=== PATIENT | female | born 1990 | race Two or more races ===

== ENCOUNTER 2017-02-22 10:55 | Observation (INO) | payer MEDICAID ==
[~2017-02-22] VITALS: Ht 154.9 cm; Wt 63.0 kg
[2017-02-22] MEDS ORDERED: LACTATED RINGER'S 1,000 ML IV ONE (11:40)
[2017-02-22] MEDS ORDERED: TERBUTALINE SULFATE 1 MG/ML 1ML VIAL SC ONE (11:41)
[2017-02-22] MEDS ORDERED: BETAMETHASONE ACET (6MG/ML) 5ML VIAL ONE (11:42)
[2017-02-22] MEDS ORDERED: BETAMETHASONE ACET (6MG/ML) 5ML VIAL IM ONE (11:45)
[2017-02-22] MEDS: TERBUTALINE SULFATE 1 MG/ML 1ML VIAL SC SCH ×3 (11:49→12:25)
[2017-02-22 12:50] LABS: Urine Bilirubin Negative (Negative); Urine Blood TRACE /uL (Negative); Urine Color Yellow (Yellow); Urine Glucose Normal (Normal); Urine Ketone Negative (Negative); Urine Nitrite Negative (Negative); Urine RBC 3 /hpf (0 - 4); Urine Squamous Epithelial Cell FEW /hpf (<5); Urine Urobilinogen Normal (Negative)
== END 2017-02-22 13:30 | disposition home or self-care (01) | DRG 563 ==
LOC: LDRP 10:55
PROVIDERS: ADMIT Specialist; ATTEND Specialist
DX: O60.03 Preterm labor without delivery, third trimester (principal); O62.9 Abnormality of forces of labor, unspecified; Z3A.33 33 weeks gestation of pregnancy
CPT/HCPCS: 59025; 76805; 80307; 81001; 81002; 82948; 82962; 96360; 96361; 96372; G0378; J0702; J3105; 96366

== ENCOUNTER 2017-02-23 11:40 | Observation (INO) | payer MEDICAID ==
[2017-02-23] MEDS ORDERED: BETAMETHASONE ACET (6MG/ML) 5ML VIAL IM ONE (12:00)
== END 2017-02-23 13:55 | disposition home or self-care (01) | DRG 566 ==
LOC: LDRP 11:40
PROVIDERS: ADMIT Obstetrics & Gynecology; ATTEND Obstetrics & Gynecology
DX: O26.893 Other specified pregnancy related conditions, third trimester (principal); Z02.89 Encounter for other administrative examinations; Z3A.33 33 weeks gestation of pregnancy
CPT/HCPCS: 59025; 81002; 82962; 96372; G0378; J0702

== ENCOUNTER 2017-03-13 18:29 | Observation (INO) | payer MEDICAID ==
[~2017-03-13] VITALS: Ht 30.5 cm; Wt 0.5 kg
[2017-03-13] MEDS ORDERED: LACT. RINGERS/OXYTOCIN 20UNITS 1,000 ML IV SCH (21:22)
[2017-03-13] MEDS ORDERED: LACTATED RINGER'S 1,000 ML IV SCH (21:22)
[2017-03-13] MEDS ORDERED: LIDOCAINE 2%HCL (LOCAL ANESTH.) INJ 20ML MDV IJ ONE (21:30)
[2017-03-13] MEDS ORDERED: PHISODERM TOP SOLN 240ML BTL TOP PRN (21:30)
[2017-03-13] MEDS ORDERED: DERMOPLAST 60ML BOTTLE TOP PRN (21:30)
[2017-03-13] MEDS ORDERED: WITCH HAZEL-GLYCERIN PAD TOP PRN (21:30)
[2017-03-13] MEDS ORDERED: NALBUPHINE HCL 10 MG/1ml INJECTION IV PRN (21:30)
[2017-03-13] MEDS ORDERED: METHYLERGONOVINE MALEATE 0.2 MG/ML AMP IM PRN (21:30)
[2017-03-13] MEDS ORDERED: PENICILLIN G POT 5MIL/D5 50ML 50 ML IV ONE (21:30)
[2017-03-13 22:32] LABS: Basophils # (auto) 0 uL; Basophils % (auto) 0.4 % (0.0-2.0); Eosinophils # (auto) 0.1 uL; Eosinophils % (auto) 0.5 % (0.0-7.0); Hemoglobin 12.8 g/dL (12.2-16.2); Lymphocytes # (auto) 2.1 uL; Lymphocytes % (auto) 21.3 % (10.0-50.0); Mean Corpuscular Hemoglobin 31.5 pg (28.0-32.0); Mean Corpuscular Hgb Conc. 33.8 g/dL (32.0-36.0); Mean Corpuscular Volume 93.4 fL (80.0-100.0); Mean Platelet Volume 8.1 fL (7.4-10.4); Monocytes # (auto) 0.9 uL; Monocytes % (auto) 8.9 % (0.0-12.0); Neutrophils # (auto) 6.8 uL; Neutrophils % (auto) 68.9 % (37.0-80.0); Platelet Count (auto) 190 10^3/uL (140-450); White Blood Cell 9.9 10^3/uL (4.4-10.8)
[2017-03-13 22:47] LABS: INR 0.92 (0.9-1.15); Partial Thromboplastin Time 32.2 sec (22.64-33.71)
[2017-03-13 22:54] LABS: Albumin 2.7 g/dL (3.4-5.0); Calcium 8.4 mg/dL (8.5-10.1); Potassium 3.4 mmol/L (3.5-5.1)
[2017-03-13 22:56] LABS: BUN/Creatinine Ratio 15.9
[2017-03-13 22:58] LABS: Bilirubin, Total 0.3 mg/dL (0.2-1.0); Total Protein 6.3 g/dL (6.4-8.2)
[2017-03-13 23:05] LABS: Urine Bilirubin Negative (Negative); Urine Blood Negative /uL (Negative); Urine Color Yellow (Yellow); Urine Glucose Normal (Normal); Urine Nitrite Negative (Negative); Urine RBC 1 /hpf (0 - 4); Urine Squamous Epithelial Cell FEW /hpf (<5); Urine Urobilinogen Normal (Negative)
[2017-03-13 23:06] LABS: Urine Ketone 1+ (Negative)
[2017-03-14] MEDS: PENICILLIN G POTASSIUM 2,500,000 UNITS in D5W 5% 50 ML IV SCH ×2 (02:50→06:48)
[2017-03-14] MEDS ORDERED: TERBUTALINE SULFATE 1 MG/ML 1ML VIAL SC ONE (08:49)
[2017-03-14] MEDS ORDERED: TERBUTALINE SULFATE 1 MG/ML 1ML VIAL SC SCH (09:00)
== END 2017-03-14 10:00 | disposition home or self-care (01) | DRG 563 ==
LOC: LDRP 18:29
PROVIDERS: ADMIT Specialist; ATTEND Specialist
DX: O60.03 Preterm labor without delivery, third trimester (principal); O26.893 Other specified pregnancy related conditions, third trimester; O62.9 Abnormality of forces of labor, unspecified; M54.9 Dorsalgia, unspecified; R10.9 Unspecified abdominal pain; Z3A.36 36 weeks gestation of pregnancy
CPT/HCPCS: 36415; 59025; 80053; 80307; 81001; 81002; 82948; 82962; 85025; 85610; 85730; 86850; 86900; 86901; 96365; 96372; 96375; G0378; J2540; J2590; J3105; 96361; 96366; J7060

== ENCOUNTER 2017-03-15 10:20 | Observation (INO) | payer MEDICAID | END 2017-03-15 11:40 | disposition home or self-care (01) | DRG 566 | LOC: LDRP 10:20 | PROVIDERS: ADMIT Obstetrics & Gynecology; ATTEND Obstetrics & Gynecology | DX: O34.63 Maternal care for abnormality of vagina, third trimester (principal); O26.893 Other specified pregnancy related conditions, third trimester; N89.5 Stricture and atresia of vagina; R10.9 Unspecified abdominal pain; O62.9 Abnormality of forces of labor, unspecified; Z3A.37 37 weeks gestation of pregnancy | CPT/HCPCS: 59025; 81002; G0378 ==

== ENCOUNTER 2017-03-17 18:56 | Observation (INO) | payer MEDICAID | END 2017-03-17 20:06 | disposition home or self-care (01) | DRG 566 | LOC: LDRP 18:56 | PROVIDERS: ADMIT Obstetrics & Gynecology; ATTEND Obstetrics & Gynecology | DX: O24.419 Gestational diabetes mellitus in pregnancy, unspecified control (principal); Z3A.37 37 weeks gestation of pregnancy | CPT/HCPCS: 59025; 81002; G0378 ==

== ENCOUNTER 2017-03-23 10:15 | Observation (INO) | payer MEDICAID | END 2017-03-23 11:00 | disposition home or self-care (01) | DRG 566 | LOC: LDRP 10:15 | PROVIDERS: ADMIT Specialist; ATTEND Specialist | DX: O24.419 Gestational diabetes mellitus in pregnancy, unspecified control (principal); Z3A.38 38 weeks gestation of pregnancy | CPT/HCPCS: 59025; 81002; 82962; G0378 ==

== ENCOUNTER 2017-03-26 11:25 | Observation (INO) | payer MEDICAID | END 2017-03-26 12:50 | disposition home or self-care (01) | DRG 566 | LOC: LDRP 11:25 | PROVIDERS: ADMIT Obstetrics & Gynecology; ATTEND Obstetrics & Gynecology | DX: O24.419 Gestational diabetes mellitus in pregnancy, unspecified control (principal); O26.893 Other specified pregnancy related conditions, third trimester; R51 Headache; Z3A.38 38 weeks gestation of pregnancy | CPT/HCPCS: 59025; 76818; 81002; G0378 ==

== ENCOUNTER 2017-03-29 22:14 | Inpatient (IN) | payer MEDICAID ==
[~2017-03-29] VITALS: Ht 154.9 cm; Wt 66.2 kg
[2017-03-29] MEDS ORDERED: PHISODERM TOP SOLN 240ML BTL TOP PRN (22:45)
[2017-03-29] MEDS ORDERED: NALBUPHINE HCL 10 MG/1ml INJECTION IV PRN (22:45)
[2017-03-29] MEDS ORDERED: LACT. RINGERS/OXYTOCIN 20UNITS 1,000 ML IV SCH (22:45)
[2017-03-29] MEDS ORDERED: PROMETHAZINE HCL 25 MG/ML 1ML IV ONE (22:45)
[2017-03-29] MEDS ORDERED: WITCH HAZEL-GLYCERIN PAD TOP PRN (22:45)
[2017-03-29] MEDS ORDERED: LACTATED RINGER'S 1,000 ML IV SCH (22:45)
[2017-03-29] MEDS ORDERED: DERMOPLAST 60ML BOTTLE TOP PRN (22:45)
[2017-03-29] MEDS ORDERED: METHYLERGONOVINE MALEATE 0.2 MG/ML AMP IM PRN (22:45)
[2017-03-29] MEDS ORDERED: LIDOCAINE 2%HCL (LOCAL ANESTH.) INJ 20ML MDV IJ PRN (22:45)
[2017-03-29 23:26] LABS: Basophils # (auto) 0 uL; Basophils % (auto) 0.3 % (0.0-2.0); CONDITION AutoValidated; Eosinophils # (auto) 0 uL; Eosinophils % (auto) 0.2 % (0.0-7.0); Hematocrit 37.7 % (36.0-46.0); Hemoglobin 12.8 g/dL (12.2-16.2); Lymphocytes # (auto) 2.1 uL; Lymphocytes % (auto) 20.9 % (10.0-50.0); Mean Corpuscular Hgb Conc. 34.1 g/dL (32.0-36.0); Mean Corpuscular Volume 93.8 fL (80.0-100.0); Mean Platelet Volume 8.4 fL (7.4-10.4); Monocytes % (auto) 9.9 % (0.0-12.0); Neutrophils % (auto) 68.7 % (37.0-80.0); Platelet Count (auto) 220 10^3/uL (140-450); Red Cell Distribution Width 15.2 % (11.6-16.0); White Blood Cell 10.2 10^3/uL (4.4-10.8)
[2017-03-29 23:39] LABS: INR 0.91 (0.9-1.15); Partial Thromboplastin Time 32.5 sec (22.64-33.71); Prothrombin Time 9.9 sec (9.37-12.3)
[2017-03-29 23:41] LABS: Urine Bilirubin Negative (Negative); Urine Blood Negative /uL (Negative); Urine Color Yellow (Yellow); Urine Glucose Normal (Normal); Urine Ketone Negative (Negative); Urine Nitrite Negative (Negative); Urine RBC <1 /hpf (0 - 4); Urine Squamous Epithelial Cell FEW /hpf (<5); Urine Urobilinogen Normal (Negative); Urine pH 6.5 (5.0-8.0)
[2017-03-29] MEDS ORDERED: PENICILLIN G POT 5MIL/D5 50ML 50 ML IV ONE (23:45)
[2017-03-29 23:47] LABS: Albumin 2.6 g/dL (3.4-5.0); BUN/Creatinine Ratio 20.8; Calcium 8.1 mg/dL (8.5-10.1); Potassium 3.6 mmol/L (3.5-5.1)
[2017-03-29 23:50] LABS: Bilirubin, Total 0.3 mg/dL (0.2-1.0); Total Protein 6.2 g/dL (6.4-8.2)
[2017-03-30] MEDS ORDERED: PENICILLIN G POT 5MILLION UNIT VIAL ONE (03:42)
[2017-03-30] MEDS ORDERED: STERILE WATER 20 ML ONE (03:56)
[2017-03-30] MEDS: PENICILLIN G POTASSIUM 2,500,000 UNITS in D5W 5% 50 ML IV SCH ×3 (04:07→13:16)
[2017-03-30] MEDS ORDERED: ePHEDrine SULFATE 50 MG/ML AMP IV ONE ×2 (07:30→09:00)
[2017-03-30] MEDS ORDERED: NALOXONE HCL 0.4 MG/ML VIAL IV ONE ×2 (07:30→09:00)
[2017-03-30] MEDS ORDERED: fentaNYL W ROPIVACAINE 150 ML EPI SCH ×2 (07:30→09:00)
[2017-03-30] MEDS ORDERED: LIDOCAINE HCL 2 %PF INJ 10ML AMP IJ ONE (07:30)
[2017-03-30] MEDS ORDERED: fentaNYL CITRATE 100 MCG/2 ML VL IV ONE (07:30)
[2017-03-30] MEDS ORDERED: SODIUM CHLORIDE 0.9% 500 ML IV PRN (08:53)
[2017-03-30] MEDS ORDERED: TERBUTALINE SULFATE 1 MG/ML 1ML VIAL SC ONE (14:30)
[2017-03-30] MEDS ORDERED: ACETAMINOPHEN 325 MG TAB PO PRN (16:15)
[2017-03-30] MEDS ORDERED: IBUPROFEN 600 MG TAB PO PRN (16:15)
[2017-03-30 18:45] VITALS: BP 94/56
[2017-03-30 23:30] VITALS: BP 99/53
[2017-03-31 04:00] VITALS: BP 92/53
[2017-03-31 07:00] VITALS: BP 105/58
[2017-03-31 11:58] VITALS: BP 97/55
[2017-03-31] MEDS ORDERED: TETANUS-DIPTH-ACEL PERTUSSIS 0.5ML SYRG IM ONE (12:15)
[2017-03-31] MEDS ORDERED: PREN-96 PO (14:19)
== END 2017-03-31 15:40 | disposition home or self-care (01) | DRG 560 ==
LOC: LDRP 22:14
PROVIDERS: ADMIT Specialist; ATTEND Specialist
PROC: 10E0XZZ Delivery of Products of Conception, External Approach (ICD-10-PCS; principal; 2017-03-30)
PROC: 10907ZC Drainage of Amniotic Fluid, Therapeutic from Products of Conception, Via Natural or Artificial Opening (ICD-10-PCS; 2017-03-30)
PROC: 3E0S3CZ (ICD-10-PCS; 2017-03-30)
PROC: 00HU33Z Insertion of Infusion Device into Spinal Canal, Percutaneous Approach (ICD-10-PCS; 2017-03-30)
DX: O24.420 Gestational diabetes mellitus in childbirth, diet controlled (principal); O99.824 Streptococcus B carrier state complicating childbirth; Z37.0 Single live birth; Z23 Encounter for immunization; Z3A.39 39 weeks gestation of pregnancy
CPT/HCPCS: 36415; 51702; 59025; 59409; 62282; 80053; 80307; 81001; 82948; 82962; 85025; 85610; 85730; 86850; 86900; 86901; 90715; 96361; 96365; 96366; 96372; J2540; J2590; J3010; J7060